=== PATIENT | male | born 1970 | race Caucasian/White ===

== ENCOUNTER 2024-06-28 11:47 | Outpatient (CLI) | payer BC, SELFPAY ==
--- NOTE | ~2024-06-28 | XR_ITS ---
XR lumbar spine 2-3V 06/28/2024 12:01 Indication: Low back pain for 6 weeks Procedure: No prior studies for comparison. Comparison: No prior studies for comparison. Findings: There is disc narrowing at L5-S1. There is facet hypertrophy at L4-5 and L5-S1. No acute fr acture or traumatic malalignment. No evidence for spondylolisthesis. Pedicles intact. Sacral foramen are symmetric. Impression: 1: Moderate spondylosis, most significant at L5-S1 Reviewed, dictated and finalized at location B. Impression: 1: Moderate spondylosis, most significant at L5-S1
== END 2024-06-28 11:48 ==
PROVIDERS: PCP Internal Medicine; Visit Provider Internal Medicine
DX: M54.50 Low back pain, unspecified (principal); M43.06 Spondylolysis, lumbar region
CPT/HCPCS: 72100

== ENCOUNTER 2024-09-04 13:41 | Outpatient (CLI) | payer BC, SELFPAY ==
--- NOTE | ~2024-09-04 | MR_ITS ---
MRI of the lumbar spine Clinical History: Back pain Technique: Axial T2-weighted images, and sagittal T1-weighted, T2-weighted, and and T2 fat-sat images were acquired. Findings: There is no fracture or subluxation of the lumbar spine. Vertebral bodies maintain normal h eight and line. There is reactive marrow signal changes about the L5-S1 disc space due to underlying degenerative disc disease. Possible early developing Schmorl's node at the inferior endplate of L5. At L1-L2 and L2-L3, there is no disc bulge or herniation. There is mild facet arthropathy results. No spinal canal stenosis or neural foraminal narrowing at these levels. At L3-L4, there is mild degenerative disc change, with minimal disc bulge. There is mild to moderate facet arthropathy. No central canal stenosis. There is minimal right neural foraminal narrowing. Left neural foramen preserved. At L4-L5, there is minimal disc bulge with mild to moderate facet arthropathy. No central canal steno sis. There is minimal bilateral neural foraminal narrowing. At L5-S1, there is severe degenerative disc narrowing. There is minimal disc bulge with advanced face t arthropathy. No central canal stenosis. There is mild to moderate bilateral neural foraminal narrow ing. Paravertebral soft tissues are unremarkable. Impression: Reactive marrow signal changes at L5-S1 due to underlying degenerative disc disease with possible ear ly developing Schmorl's node at the inferior endplate of L5. Mild degenerative spondylosis otherwise, as detailed above. Reviewed, dictated and finalized at [facility]. [employer] Impression: Reactive marrow signal changes at L5-S1 due to underlying degenerative disc dis ease with possible early developing Schmorl's node at the inferior endplate of L5. Mild degenerative spondylosis otherwise, as detailed above.
== END 2024-09-04 13:42 | disposition home or self-care (01) ==
PROVIDERS: PCP Internal Medicine; Visit Provider Internal Medicine
DX: M51.370 Other intervertebral disc degeneration, lumbosacral region with discogenic back pain only (principal); M47.817 Spondylosis without myelopathy or radiculopathy, lumbosacral region; M51.369 Other intervertebral disc degeneration, lumbar region without mention of lumbar back pain or lower extremity pain
CPT/HCPCS: 72148